=== PATIENT | male | born 1950 | race Caucasian/White ===

== ENCOUNTER 2018-11-19 13:52 | Emergency (ER) | payer MEDICARE ==
[~2018-11-19] VITALS: Ht 167.6 cm; Wt 106.0 kg
[2018-11-19 13:57] VITALS: Ht 167.6 cm; Wt 106.0 kg
[2018-11-19] MEDS ORDERED: ASPIRIN 81 MG TAB PO STA (15:35)
--- NOTE | 2018-11-19 15:35 | ERD ---
ER Documentation Chief Complaint Chief Complaint CP FOR THE PAST WEEK AND HEADACHE AND GEN FATIGUE , NO DIAPHORESIS MILD SOB HPI 68-year-old male with a history of hypertension presenting with multiple complaints. He is mainly here because his primary care doctor referred him after a "abnormal EKG". Patient has been complaining of left-sided pressure- like nonradiating and nonexertional chest pain for the past 1 month. His symp toms are intermittent, worse with lifting heavy objects and worse with movements of his left arm when he has the pain. No alleviating factors. He is not taking any medications to alleviate the pain. No associated shortness of breath, diaphoresis, nausea, vomiting. No associated acute leg swelling. Since his symptoms were persistent, he went to the primary care doctor, where an EKG was done today and showed sinus rhythm with PVCs. He was advised to go to the ER for further evaluation. Patient also complains of a bandlike, tight, pain around his head that has been going on for 1 year intermittently. It is not a daily headache. He has no associated vision disturbance, focal weakness or numbness, dizziness, photophobia, nausea or vomiting. The headaches self resolved. Currently he has a mild headache, 5 out of 10, frontal, described as pressure-like ROS All systems reviewed and are negative except as per history of present illness. Medications Home Meds Reported Medications Benazepril Hcl* (Benazepril Hcl*) 5 Mg Tablet, 5 MG PO DAILY, #30 TAB 11/19/18 Allergies Allergies: Coded Allergies: No Known Allergy (Unverified , 11/19/18) PMhx/Soc History of Surgery: No Hx Cardiac Disorders: Yes (Hypertension) Hx Miscellaneous Medical Probl: Yes (Hypertriglyceridemia) Hx Alcohol Use: No Hx Substance Use: No Hx Tobacco Use: No Smoking Status: Never smoker FmHx Hypertension Family History: No diabetes, No coronary disease Physical Exam Vitals Vital Signs Date Temp Pulse Resp B/P (MAP) Pulse Ox O2 O2 Flow FiO2 Time Delivery Rate 11/19/18 62 18 158/81 95 Room Air 16:30 (106) 11/19/18 85 18 170/107 97 Room Air 15:40 (128) 11/19/18 98.6 71 18 235/95 98 13:57 (141) Physical Exam Const: No acute distress Head: Atraumatic Eyes: Normal Conjunctiva ENT: Normal External Ears, Nose and Mouth. Neck: Full range of motion. No meningismus. Resp: Clear to auscultation bilaterally Cardio: Regular rate and rhythm, with occasional irregular beats, no murmurs. 2+ distal pulses Abd: Soft, non tender, non distended. Normal bowel sounds Skin: No petechiae or rashes Back: No midline or flank tenderness Ext: No cyanosis, or edema. No calf tenderness Neur: Awake and alert Psych: Normal Mood and Affect Result Diagram: 11/19/18 1601 11/19/18 1601 Results 24 hrs Laboratory Tests Test 11/19/18 16:01 White Blood Count 6.8 10^3/ul Red Blood Count 5.20 10^6/ul Hemoglobin 14.5 g/dl Hematocrit 44.1 % Mean Corpuscular Volume 84.8 fl Mean Corpuscular Hemoglobin 27.9 pg Mean Corpuscular Hemoglobin Concent 32.9 g/dl Red Cell Distribution Width 13.3 % Platelet Count 201 10^3/UL Mean Platelet Volume 10.1 fl Immature Granulocytes % 0.100 % Neutrophils % 55.4 % Lymphocytes % 33.6 % Monocytes % 7.9 % Eosinophils % 2.6 % Basophils % 0.4 % Nucleated Red Blood Cells % 0.0 /100WBC Immature Granulocytes # 0.010 10^3/ul Neutrophils # 3.8 10^3/ul Lymphocytes # 2.3 10^3/ul Monocytes # 0.5 10^3/ul Eosinophils # 0.2 10^3/ul Basophils # 0.0 10^3/ul Nucleated Red Blood Cells # 0.0 10^3/ul Sodium Level 141 mmol/L Potassium Level 4.2 mmol/L Chloride Level 111 mmol/L Carbon Dioxide Level 24 mmol/L Anion Gap 6 Blood Urea Nitrogen 24 mg/dl Creatinine 0.77 mg/dl Est Glomerular Filtrat Rate mL/min > 60 mL/min Glucose Level 96 mg/dl Calcium Level 9.3 mg/dl Troponin I < 0.012 ng/ml Current Medications Medications Dose Sig/Piper Start Time Status Last (Trade) Ordered Route PRN Stop Time Admin Dose Reason Admin Aspirin 162 mg ONCE STAT 11/19/18 DC 11/19/18 (Aspirin) PO 15:35 11/19/18 15:55 15:36 Procedures/MDM EMERGENT LABS AND DIAGNOSTIC STUDIES: Lab Results above were reviewed and interpreted by me. CBC: no anemia or evidence of infection BMP: Mild BUN elevation, suspect prerenal azotemia secondary to mild dehydration. No e/o clinically significant electrolyte abnormality severe acid osis, alkalosis, renal failure, diabetic ketoacidosis Troponin within normal limits, not indicative of cardiac ischemia 12-lead EKG was interpreted by Tegan Mason MD: Sinus rhythm with PVCs Normal axis Normal intervals No acute ST or T wave changes suggestive of acute ischemia or STEMI. Radiology Results as interpreted by Radiology below were reviewed by Nicole Mason MD: Chest x-ray shows no acute abnormalities Initial Nursing notes reviewed. Previous Medical Records requested via the Electronic Health Record. EMERGENCY DEPARTMENT COURSE / MEDICAL DECISION MAKING: The patient presents with chest pain for 1 months. Vitals are notable for hypertension but otherwise unremarkable. I considered pulmonary embolism, aortic dissection, pneumothorax among other diagnoses. Evaluation for acute coronary syndrome was performed. The HEART score was utilized for risk stratification and found to be <3 . Based on this evaluation the patient's risk of major adverse cardiac events is <2%. Doubt dissection, PE, pericarditis. Shared decision making occurred with patient and the decision has been made to discharge the patient for outpatient evaluation and functional study within 72 hours. Patient instructed to arrange follow up with PCP in the next 2 days and return to the ED for any new or worsening symptoms. Patient's blood pressure was elevated (>120/80) but appears stable without evidence of hypertensive emergency or urgency. The patient was counseled about the risks of hypertension and urged to pursue outpatient monitoring and therapy within a week with their primary care physician. Departure Diagnosis: Primary Impression: Chest pain Chest pain type: unspecified Qualified Codes: R07.9 - Chest pain, unspecified Additional Impression: Headache, frequent episodic tension-type Condition: Stable SUJIT MASON MD Nov 19, 2018 15:35
[2018-11-19 16:30] VITALS: BP 158/81; PULSE 62; RESP 18
[2018-11-19] MEDS ORDERED: BENA5TAB33 PO (17:12)
== END 2018-11-19 18:25 | disposition home or self-care (01) ==
LOC: E/R 13:52
DX: G44.219 Episodic tension-type headache, not intractable (principal); I10 Essential (primary) hypertension
CPT/HCPCS: 36415; 71045; 80048; 84484; 85025; 93005